=== PATIENT | male | born 1990 | race Hispanic/Latino ===

== ENCOUNTER 2020-07-22 14:21 | Outpatient (CLI) | payer BC, SELFPAY ==
--- NOTE | ~2020-07-22 | XR_ITS ---
XR hip BI 2V w AP pelvis DATE: 07/22/2020 15:10 INDICATION: Bilateral hip pain. Left sciatica. TECHNIQUE: AP pelvis. AP and bilateral hip views. COMPARISON: None FINDINGS: No pelvic fracture or bone destruction. The pubic symphysis and sacroiliac joints are intac t. Hip joint spaces are symmetric and well preserved. No fracture or dislocation, avascular necrosis or bone destruction of either hip is detected. IMPRESSION: Negative Reviewed, dictated and finalized at location A. IMPRESSION: Negative
== END 2020-07-22 14:22 | disposition home or self-care (01) ==
PROVIDERS: PCP Internal Medicine; Visit Provider Internal Medicine
DX: M54.32 Sciatica, left side (principal)
CPT/HCPCS: 73521

== ENCOUNTER 2021-09-23 14:01 | Emergency (ER) | payer BC, SELFPAY ==
--- NOTE | ~2021-09-23 | CT_ITS ---
EXAMINATION: CT brain wo con INDICATION: Head injury COMPARISON: None TECHNIQUE: Standard unenhanced head CT. The dose-length product (DLP) was 605.33 mGy-cm. The mA was a djusted according to patient size. Iterative reconstruction technique was employed. FINDINGS: There is no intracranial hemorrhage, acute infarction, or abnormal mass lesion. The ventric les are normal. There is no abnormal mass effect or midline shift. The ford-white matter differentiat ion is normal. The basal cisterns are patent. The orbits are normal. There is mild mucosal thickening of the left maxillary sinus. The paranasal sinuses, mastoids and calvarium are otherwise normal. IMPRESSION: 1. No acute intracranial abnormality. Reviewed, dictated and finalized at location A.
--- NOTE | ~2021-09-23 | CT_ITS ---
EXAMINATION: CT cervical spine wo con DATE: 09/23/2021 14:49 INDICATION: Head injury, neck pain TECHNIQUE: Computed tomography (CT) of the cervical spine was performed without intravenous contrast. The dose-length product (DLP) was 234.40 mGy-cm. Automated exposure control and iterative reconstruc tion technique were employed. COMPARISON: None FINDINGS: There is no fracture, dislocation, or subluxation. The vertebral body heights, alignment, a nd intervertebral disc spaces are normal. The paravertebral soft tissues are unremarkable. The odonto id is intact. IMPRESSION: 1. No acute osseous abnormality. Reviewed, dictated and finalized at location A.
--- NOTE | ~2021-09-23 | XR_ITS ---
EXAMINATION: XR hand LT 2V INDICATION: Left hand pain TECHNIQUE: Two views of the left hand are obtained. COMPARISON: None available FINDINGS: There is no fracture, dislocation, or subluxation. The bones, soft tissues, and joint space s are normal. IMPRESSION: 1. No acute osseous abnormality. Reviewed, dictated and finalized at location A.
[2021-09-23 14:12] VITALS: BP 130/94; PULSE 67; RESP 19; TEMP 36.6; O2SAT 100
--- NOTE | 2021-09-23 14:32 | ED.GENADULT ---
HPI - General Adult General Chief complaint: Trauma Stated complaint: fell from a roof Time Seen by Provider: 09/23/21 14:27 History of Present Illness HPI narrative: 30-year-old male presents to the emergency room for injury sustained in a fall. Patient states that he was on the one-story house, replacing james material, when he slipped and fell landing on the ground. Patient is reporting left hand pain. Patient is unsure if he hit his head. On arrival patient is in a c-collar. Patient denies LOC, AMS. Denies any other injuries at this time Related Data Allergies Allergy/AdvReac Type Severity Reaction Status Date / Time No Known Allergies Allergy Verified 07/22/20 12:57 Review of Systems Review of Systems: CONSTITUTIONAL: Denies fever, chills, or sweats. EYES: Denies visual changes, redness, or discharge. ENT: Denies rhinorrhea, congestion, sore throat, or otalgia. CARDIOVASCULAR: Denies chest pain, palpitations, or edema. RESPIRATORY: Denies cough or dyspnea. GASTROINTESTINAL: Denies abdominal pain, nausea, vomiting, or diarrhea. GENITOURINARY: Denies dysuria or hematuria. SKIN: Denies rash or itching. MUSCULOSKELETAL: Reports left hand pain NEUROLOGIC: Denies headache, numbness, dizziness, or weakness. PSYCHIATRIC: Denies anxiety or depression. [facility] Family History Family History Father No problems noted. Mother Diabetes mellitus Social History Social History Smoking status: Never smoker Alcohol intake: current Alcohol use details: Occasionally Substance use: never Exam Narrative: GENERAL: Well-appearing, well-nourished, and in no acute distress. HEAD: Normocephalic, atraumatic. EYES: PERRLA and EOMI. ENT: Nares clear, no rhinorrhea or epistaxis. Mucous membranes moist. Oropharynx without tonsillar hypertrophy exudate or other lesions. Bilateral TMs pearly ford nonbulging NECK: Supple. No adenopathy or masses. No carotid bruits or JVD CHEST: Clear to auscultation. No respiratory distress. No wheezes rales or rhonchi HEART: Regular rate and rhythm. No murmur heard. Normal peripheral pulses. ABDOMEN: Soft, nontender, nondistended, normal active bowel sounds. EXTREMITIES: Left hand: Tenderness to the third and fourth fingers, no bony abnormality, soft tissue swelling is present, neurovascular is intact distally SKIN: Warm, dry, no rash. NEURO: No focal deficits. Alert and oriented x3. PSYCH: Normal mood and affect. Course Vital Signs Vital signs: Vital Signs Temperature 36.6 C 09/23/21 14:12 Pulse Rate 09/23/21 14:12 Respiratory Rate 09/23/21 14:12 Blood Pressure 130/94 H 09/23/21 14:12 Pulse Oximetry 100 09/23/21 14:12 Temperature 36.6 C 09/23/21 14:12 Pulse Rate 09/23/21 14:12 Respiratory Rate 09/23/21 14:12 Blood Pressure 130/94 H 09/23/21 14:12 Pulse Oximetry 100 09/23/21 14:12 Medical Decision Making Vital Signs Vital Signs: Vital Signs Temperature 36.6 C 09/23/21 14:12 Pulse Rate 09/23/21 14:12 Respiratory Rate 09/23/21 14:12 Blood Pressure 130/94 H 09/23/21 14:12 Pulse Oximetry 100 09/23/21 14:12 Temperature 36.6 C 09/23/21 14:12 Pulse Rate 09/23/21 14:12 Respiratory Rate 09/23/21 14:12 Blood Pressure 130/94 H 09/23/21 14:12 Pulse Oximetry 100 09/23/21 14:12 Imaging Data Radiologist's impression: Impressions Hand X-Ray 09/23/21 14:45 IMPRESSION: 1. No acute osseous abnormality. Head CT 09/23/21 14:50 IMPRESSION: 1. No acute intracranial abnormality. Cervical Spine CT 09/23/21 14:53 IMPRESSION: 1. No acute osseous abnormality. Discharge Plan Discharge Clinical Impression: Contusion of hand, left Patient Disposition: Home, Self-Care Condition: Stable Instructions: Antibiotic Form P
[2021-09-23 15:21] LABS: Add Urine Microscopic? NO; Appearance Urine Clear (Clear); Bilirubin Urine Negative (Negative); Blood Urine Negative (Negative); Color Urine Yellow (Yellow); Glucose Urine UA Negative (Negative); Ketones Urine Negative (Negative); Leukocyte Esterase Ur Negative LEU/UL (Negative); Nitrate Urine Negative (Negative); Protein Urine Negative (Negative); Specific Grav Ur >= 1.030 (1.001-1.035); Urobilinogen Urine 0.2 mg/dL (<2.0); pH Urine 5.5 (5.0-9.0)
[2021-09-23] MEDS: KETOROLAC 30 MG/ML VIAL (*BKC) IV PUSH (15:26)
[2021-09-23 15:34] VITALS: BP 127/78; PULSE 60; RESP 16; O2SAT 99
== END 2021-09-23 15:35 | disposition home or self-care (01) ==
PROVIDERS: Emergency Provider Nurse Practitioner Family; PCP Internal Medicine
DX: S60.222A Contusion of left hand, initial encounter (principal); W13.2XXA Fall from, out of or through roof, initial encounter
CPT/HCPCS: 70450; 72125; 73120; 81003; 96374; 99284; J1885; L0140

== ENCOUNTER 2022-08-18 14:47 | Outpatient (CLI) | payer BC, SELFPAY ==
[2022-08-18 15:08] LABS: Basophils Percent Auto 0.2 % (0.2-1.2); Eosinophils Absolute Auto 0.1 K/mm3 (0-0.3); Hematocrit 40.1 % (42.0-52.0); Immature Granulocyte Absolute 0.03 K/mm3 (0.00-0.031); Immature Granulocyte Percent A 0.6 % (0-0.5); Lymphocytes Absolute Auto 1.46 K/mm3 (0.9-3.2); Mean Corpuscular HGB Conc 34.9 g/dl (32-36); Mean Corpuscular Volume 83.2 fl (80-100); Mean Platelet Volume 11.4 fl (7.4-10.4); Monocytes Absolute Auto 0.4 K/mm3 (0.1-0.6); Monocytes Percent Auto 7.7 % (2.6-8.5); Neutrophils Absolute Auto 3.3 K/mm3 (1.3-6.7); Neutrophils Percent Auto 62.5 % (45.5-73.1); Platelet Count Result 182 k/mm3 (150-375); Red Blood Count 4.82 M/mm3 (4.6-6.20); Red Cell Distribution Width 12.5 % (11.5-14.5); White Blood Count 5.2 K/mm3 (4.5-10.0)
[2022-08-18 15:26] LABS: Alanine Aminotransferase 41 U/L (6-50); Albumin Level 4.9 g/dL (3.5-5.1); Alkaline Phosphatase 124 U/L (38-126); Anion Gap 10 mmol/L (8-16); Aspartate Amino Transferase 34 U/L (17-59); Bilirubin,Total 0.9 mg/dL (0.2-1.3); Blood Urea Nitrogen 22 mg/dL (9-20); Carbon Dioxide 25 mmol/L (22-30); Chloride 107 mmol/L (98-107); Estimated Glomerular Filt Rate > 60; Glucose 100 mg/dL (65-110); Potassium 3.8 mmol/L (3.4-5.0); Sodium 142 mmol/L (137-145)
[2022-08-18 17:27] LABS: Folic Acid 9.1 ng/mL (2.76->20)
[2022-08-18 18:05] LABS: Iron 113 ug/dL (49-181)
[2022-08-18 18:15] LABS: Percent Iron Saturation 23 % (20-50)
[2022-08-18 18:19] LABS: Vitamin D 25 Hydroxy 45.7 ng/mL
== END 2022-08-18 14:48 | disposition home or self-care (01) ==
LOC: ANHLAB 14:48
PROVIDERS: PCP Internal Medicine; Visit Provider Nurse Practitioner Family
DX: R53.83 Other fatigue (principal); F41.9 Anxiety disorder, unspecified; R68.89 Other general symptoms and signs; E55.9 Vitamin D deficiency, unspecified
CPT/HCPCS: 36415; 80053; 82306; 82607; 82746; 83540; 83550; 84443; 85025

== ENCOUNTER 2023-05-30 10:42 | Outpatient (CLI) | payer BC, SELFPAY ==
--- NOTE | ~2023-05-30 | XR_ITS ---
Left elbow Technique: AP, oblique, and lateral views were obtained. Clinical History: Pain Findings: No acute fracture or dislocation is seen. Osseous alignment is anatomic. Joint spaces are p reserved. There is no displacement of the fat pads, and soft tissues are unremarkable. Impression: Unremarkable radiographs. Reviewed, dictated and finalized at location . [employer] Impression: Unremarkable radiographs.
== END 2023-05-30 10:43 ==
PROVIDERS: PCP Nurse Practitioner; Visit Provider Nurse Practitioner
DX: M25.522 Pain in left elbow (principal)
CPT/HCPCS: 73070

== ENCOUNTER 2024-05-07 09:30 | Outpatient (CLI) | payer BC, SELFPAY ==
[2024-05-07 09:42] LABS: Basophils Percent Auto 0.2 % (0.2-1.2); Eosinophils Absolute Auto 0.1 K/mm3 (0-0.3); Eosinophils Percent Auto 1.6 % (0-4.4); Hematocrit 43.2 % (42.0-52.0); Hemoglobin 14.9 g/dL (14.0-18.0); Immature Granulocyte Absolute 0.02 K/mm3 (0.00-0.031); Immature Granulocyte Percent A 0.5 % (0-0.5); Lymphocytes Percent Auto 34.2 % (18.3-44.2); Mean Corpuscular HGB Conc 34.5 g/dl (32-36); Mean Corpuscular Hemoglobin 29.3 pg (26-34); Monocytes Absolute Auto 0.3 K/mm3 (0.1-0.6); Monocytes Percent Auto 7.8 % (2.6-8.5); Neutrophils Absolute Auto 2.4 K/mm3 (1.3-6.7); Neutrophils Percent Auto 55.7 % (45.5-73.1); Platelet Count Result 164 k/mm3 (150-375); Red Blood Count 5.08 M/mm3 (4.6-6.20); Red Cell Distribution Width 12.4 % (11.5-14.5); White Blood Count 4.4 K/mm3 (4.5-10.0)
[2024-05-07 09:57] LABS: Alanine Aminotransferase 61 U/L (6-50); Albumin Level 4.7 g/dL (3.5-5.1); Alkaline Phosphatase 103 U/L (38-126); Anion Gap 6 mmol/L (4-12); Aspartate Amino Transferase 35 U/L (17-59); Bilirubin,Total 0.9 mg/dL (0.2-1.3); Blood Urea Nitrogen 19 mg/dL (9-20); Calcium 9.2 mg/dL (8.4-10.2); Carbon Dioxide 27 mmol/L (22-30); Chloride 107 mmol/L (98-107); Estimated Glomerular Filt Rate > 60; Glucose 97 mg/dL (65-110); Potassium 3.9 mmol/L (3.4-5.0); Sodium 140 mmol/L (137-145)
== END 2024-05-07 09:31 | disposition home or self-care (01) ==
PROVIDERS: PCP Nurse Practitioner; Visit Provider Nurse Practitioner Family
DX: K62.5 Hemorrhage of anus and rectum (principal)
CPT/HCPCS: 36415; 80053; 85025

== ENCOUNTER 2024-07-12 00:42 | Day surgery (SDC) | payer BC, SELFPAY ==
[2024-07-08 10:44] VITALS: BMI 27.8
[2024-07-12 10:32] VITALS: BP 113/75; PULSE 82; RESP 18; TEMP 36.1; O2SAT 99
[2024-07-12] MEDS: LACTATED RINGERS 1,000 ML 150 ML IV CONT (10:44)
--- NOTE | 2024-07-12 10:51 | WPDANESEPPF ---
Anes - Initial Pre Proc Eval Procedure: Operation Date: 07/12/24 14:30 Proposed Procedures p Colonoscopy - Cuauhtemoc Schultz MD Date/Time: 07/12/24 10:51 Surgeon: Cuauhtemoc Schultz MD Pre Op Diagnosis: Hem of anus/rectum Patient Data Age: 33 Gender: M Height: 1.52 m Weight: 64.5 kg Last Vital Signs Temp 97.0 F L 07/12/24 10:32 Pulse 82 07/12/24 10:32 Resp 18 07/12/24 10:32 BP 113/75 07/12/24 10:32 Pulse Ox 99 07/12/24 10:32 O2 Del Method Room Air 07/12/24 10:32 Allergies Allergy/AdvReac Type Severity Reaction Status Date / Time No Known Allergies Allergy Verified 07/08/24 10:43 Home Medications ?Medication ?Instructions ?Recorded ?Confirmed ?Type paroxetine HCl 20 mg tablet (Paxil) 20 mg PO DAILY #90 tabs 06/26/24 07/12/24 Rx Patient hx anesthesia problems: none Family hx anesthesia problems: none Results Review: All pre-operative results and documents have been reviewed as part of the pre-operative evaluation. [facility] Family History Family History Father No problems noted. Mother Diabetes mellitus Social History Social History Smoking status: Never smoker Alcohol intake: current Alcohol use details: Occasionally Substance use: never Lack of Transportation: No Lack of Food: Never True Current Housing: I Have Housing Concerned About Future Housing: No Difficulty Paying Gas/Electric Bills: No Difficulty Paying for Meds: No Currently Unemployed: No Education: High School Diploma/GED Difficulty w/ Childcare or Family Care: No Spiritual care concerns: No Anes - Eval Final PreProcedure Day of Procedure 07/12/24 10:51 Patient weight: overweight Lungs: normal air movement Airway: Mallampati scale class II Neurological: alert and oriented Last oral intake: >/= 8 hours ASA classification: II Emergent: no Anesthetic plan: proceed Anesthesia type and monitoring: general GIVS and standard monitoring Results Review: All pre-operative results and documents have been reviewed as part of the pre-operative evaluation. Anxiety, hx of rectal bleeding. Informed Consent: The patient's anesthetic plan and its attendant risks and benefits were discussed with the patient/family/POA. Questions were solicited and answers provided to the satisfaction of the patient/family/POA.
--- NOTE | 2024-07-12 11:11 | PM.HPGS ---
History of Present Illness History of Present Illness Consent: Risks, benefits, and alternatives have been discussed and questions answered. Patient agrees to proceed with procedure. Chief complaint: Hem of anus/rectum Narrative: Moise Lyle is a 33 year old male here for first colonoscopy, intermittent rectal bleeding Review of Systems Review of Systems: All systems reviewed & are unremarkable except as noted in HPI and below PMFSH Past Medical History Medical History (Updated 07/12/24 @ 11:22 by Cuauhtemoc Schultz MD) Blood in stool Family History Family History Father No problems noted. Mother Diabetes mellitus Social History Social History Smoking status: Never smoker Alcohol intake: current Alcohol use details: Occasionally Substance use: never Lack of Transportation: No Lack of Food: Never True Current Housing: I Have Housing Concerned About Future Housing: No Difficulty Paying Gas/Electric Bills: No Difficulty Paying for Meds: No Currently Unemployed: No Education: High School Diploma/GED Difficulty w/ Childcare or Family Care: No Spiritual care concerns: No Meds Home Medications and Allergies Home Medications ?Medication ?Instructions ?Recorded ?Confirmed ?Type paroxetine HCl 20 mg tablet (Paxil) 20 mg PO DAILY #90 tabs 06/26/24 07/12/24 Rx Allergies Allergy/AdvReac Type Severity Reaction Status Date / Time No Known Allergies Allergy Verified 07/08/24 10:43 Vital Signs Vital Signs - 24 hr 07/12/24 10:32 Temperature 97.0 F L Pulse Rate 82 Respiratory Rate 18 Blood Pressure 113/75 Pulse Oximetry 99 Oxygen Delivery Room Air Exam Const: General: comfortable and no acute distress HENMT: Face/Nose/Sinus: Normal nares present Eyes: General: appearance normal, both eyes and all related structures Neck: Neck: no JVD Resp: Auscultation: clear to auscultation bilaterally Cardio: Rate: regular rate Rhythm: regular rhythm GI: Inspection: non-distended GI Palp: Yes Soft to palpation Skin: General skin exam: normal color Neuro: General: gait normal Speech: normal speech Extrem: General: normal to inspection Psych: Mental Status: mental status grossly normal Assessment and Plan Assessment and plan (1) Blood in stool: Code(s): K92.1 - Melena Status: Acute Assessment and Plan: colonoscopy
[2024-07-12 11:23] VITALS: BP 95/54; PULSE 86; RESP 22; O2SAT 99
[2024-07-12 11:33] VITALS: BP 98/60; PULSE 85; RESP 20; O2SAT 96
[2024-07-12 11:43] VITALS: BP 114/76; PULSE 77; RESP 20; O2SAT 98
== END 2024-07-12 12:05 | disposition home or self-care (01) ==
PROVIDERS: PCP Nurse Practitioner Family; Referring Provider Nurse Practitioner Family; Visit Provider Internal Medicine Gastroenterology
PROC: 0DJD8ZZ Inspection of Lower Intestinal Tract, Via Natural or Artificial Opening Endoscopic (ICD-10-PCS; CPT 45378; principal; 2024-07-12 14:30)
DX: K92.1 Melena (principal)
CPT/HCPCS: 45378; J2704; J7120